=== PATIENT | male | born 1995 | race African-American/Black ===

== ENCOUNTER 2017-06-25 12:42 | Emergency (ER) | payer MEDICAID ==
[~2017-06-25] VITALS: Ht 182.9 cm; Wt 68.0 kg
[2017-06-25 12:55] VITALS: BP 143/116
[2017-06-25 13:35] VITALS: BP 104/76
[2017-06-25] MEDS ORDERED: levETIRAcetam 500mg/NS100ml 100 ML IVPB ONE (13:45)
[2017-06-25 13:49] LABS: BASOPHILS % (AUTO) 0.5 % (0.0-2.0); EOSINOPHILS % (AUTO) 0.3 % (0.0-3.0); LYMPHOCYTES % (AUTO) 13.8 % (20.0-45.0); MEAN CORPUSCULAR HEMOGLOBIN 26.3 PG (27.0-31.0); MEAN CORPUSCULAR VOLUME 80 FL (80-99); MEAN PLATELET VOLUME 6.2 FL (6.5-10.1); NEUTROPHILS % (AUTO) 78.4 % (45.0-75.0); PLATELET COUNT 227 K/UL (150-450); RED BLOOD COUNT 5.32 M/UL (4.70-6.10); RED CELL DISTRIBUTION WIDTH 11.8 % (11.6-14.8); WHITE BLOOD COUNT 8.1 K/UL (4.8-10.8)
[2017-06-25 14:06] LABS: ANION GAP 16 mmol/L (5-15); CALCIUM 9.8 MG/DL (8.5-10.1); CARBON DIOXIDE 21 MMOL/L (21-32); CHLORIDE 104 MMOL/L (98-107); CREATININE 1.3 MG/DL (0.55-1.30); GLOMERULAR FILTRATION RATE > 60 mL/min (>60); POTASSIUM 3.9 MMOL/L (3.5-5.1); SODIUM 141 MMOL/L (136-145)
[2017-06-25 14:09] VITALS: BP 106/74
[2017-06-25 14:16] LABS: ALANINE AMINOTRANSFERASE 30 U/L (12-78); ALBUMIN/GLOBULIN RATIO 1.2 (1.0-2.7); ASPARTATE AMINO TRANSFERASE 25 U/L (15-37); CARBAMAZEPINE (TEGRETOL) < 0.5 ug/mL (4.0-12.0); TOTAL PROTEIN 8.3 G/DL (6.4-8.2); VALPROIC ACID 3 MCG/ML (50-100)
[2017-06-25 14:18] LABS: BILIRUBIN,DIRECT 0.2 MG/DL (0.0-0.3)
[2017-06-25] MEDS ORDERED: Depakote 500mg tab ORAL ONE (14:30)
[2017-06-25] MEDS ORDERED: DIGOXIN125 MCG ORAL (14:45)
[2017-06-25] MEDS ORDERED: KEPPRA500 M4 ORAL (14:45)
[2017-06-25] MEDS ORDERED: ENALAPRIL MALE2.5 MG ORAL (14:45)
[2017-06-25] MEDS ORDERED: ASPIRIN81 MG ORAL (14:45)
[2017-06-25] MEDS ORDERED: FUROSEMIDE20 M1 ORAL (14:45)
[2017-06-25] MEDS ORDERED: KEPPRA750 MG ORAL (15:38)
[2017-06-25] MEDS ORDERED: ZOFRAN4 M3 ORAL (15:38)
[2017-06-25 15:45] VITALS: BP 108/63
[2017-06-25 15:48] VITALS: BP 108/63
--- NOTE | 2017-06-26 10:24 | Emergency Room Report ---
History of Present Illness General Chief Complaint: Seizure Source: Patient, EMS Present Illness HPI Patient is a 21-year-old male brought in by EMS after his witnessed seizure. Patient had prior history of seizure disorder. He is taking unknown medications. Patient had a reported tonic-clonic episode. He denies any recent fever. He reports having some generalized nausea. He was noted to have vomited one time. Allergies: Coded Allergies: No Known Allergies (Unverified , 06/25/17) Patient History Past Medical History: see triage record Reviewed Nursing Documentation: PMH: Agreed, PSxH: Agreed Nursing Documentation-PMH Past Medical History: No History, Except For Hx Cardiac Problems: Yes - "heart prob" Hx Seizures: Yes Review of Systems All Other Systems: negative except mentioned in HPI Physical Exam Vital Signs Date Time Temp Pulse Resp B/P (MAP) Pulse Ox O2 Delivery O2 Flow Rate FiO2 06/25/17 12:55 97.3 105 22 143/116 100 Room Air Sp02 EP Interpretation: reviewed, normal General Appearance: normal inspection, well appearing, no apparent distress, alert, GCS 15 Head: atraumatic ENT: normal ENT inspection, hearing grossly normal, normal voice Neck: normal inspection, full range of motion, supple, no bony tend Respiratory: normal inspection, lungs clear, normal breath sounds, no respiratory distress, no retraction, no wheezing Cardiovascular #1: regular rate, rhythm, no edema Gastrointestinal: normal inspection, normal bowel sounds, non tender, soft, no guarding, no hernia Genitourinary: no CVA tenderness Musculoskeletal: normal inspection, back normal, normal range of motion Neurologic: normal inspection, alert, oriented x3, responsive, harness fitter III-XII nml as tested, speech normal Psychiatric: normal inspection, judgement/insight normal, mood/affect normal Skin: normal inspection, normal color, no rash Medical Decision Making Diagnostic Impression: Primary Impression: Epileptic seizure, generalized Additional Impressions: Hx of cardiomyopathy Seizure disorder ER Course Patient presented for seizure. Differential diagnosis included cysticercosis , medication noncompliance, electrolyte abnormality, mass lesion, or cranial hemorrhage.Because of complexity of patient's case laboratory testing and imaging studies were ordered. Patient was noted to have prior history of seizure disorder. Initially patient' s medications are unknown. The patient's mother subsequently contacted after laboratory orders and she was noted to be on digoxin for cardiomyopathy With reported poor RV function as well as Keppra for seizures. Per the patient's mother he had intermittent compliance with his medications. The patient was given IV fluids as well as IV Keppra. The patient was noted to have a reported history of cardiomyopathy. He reportedly takes digoxin. The mother states is a congenital condition and he did not require any surgical intervention Labs Test 06/25/17 13:17 06/25/17 15:20 White Blood Count 8.1 K/UL (4.8-10.8) Red Blood Count 5.32 M/UL (4.70-6.10) Hemoglobin 14.0 G/DL (14.2-18.0) Hematocrit 42.5 % (42.0-52.0) Mean Corpuscular Volume 80 FL (80-99) Mean Corpuscular Hemoglobin 26.3 PG (27.0-31.0) Mean Corpuscular Hemoglobin Concent 33.0 G/DL (32.0-36.0) Red Cell Distribution Width 11.8 % (11.6-14.8) Platelet Count 227 K/UL (150-450) Mean Platelet Volume 6.2 FL (6.5-10.1) Neutrophils (%) (Auto) 78.4 % (45.0-75.0) Lymphocytes (%) (Auto) 13.8 % (20.0-45.0) Monocytes (%) (Auto) 7.0 % (1.0-10.0) Eosinophils (%) (Auto) 0.3 % (0.0-3.0) Basophils (%) (Auto) 0.5 % (0.0-2.0) Sodium Level 141 MMOL/L (136-145) Potassium Level 3.9 MMOL/L (3.5-5.1) Chloride Level 104 MMOL/L (98-107) Carbon Dioxide Level 21 MMOL/L (21-32) Anion Gap 16 mmol/L (5-15) Blood Urea Nitrogen 10 mg/dL (7-18) Creatinine 1.3 MG/DL (0.55-1.30) Estimat Glomerular Filtration Rate > 60 mL/min (>60) Glucose Level 92 MG/DL (74-106) Calcium Level 9.8 MG/DL (8.5-10.1) Total Bilirubin 1.1 MG/DL (0.2-1.0) Direct Bilirubin 0.2 MG/DL (0.0-0.3) Aspartate Amino Transf (AST/SGOT) 25 U/L (15-37) Alanine Aminotransferase (ALT/SGPT) 30 U/L (12-78) Alkaline Phosphatase 78 U/L (46-116) Troponin I 0.000 ng/mL (0.000-0.056) Total Protein 8.3 G/DL (6.4-8.2) Albumin 4.6 G/DL (3.4-5.0) Globulin 3.7 g/dL Albumin/Globulin Ratio 1.2 (1.0-2.7) Phenytoin (Dilantin) Level < 0.4 ug/mL (10-20) Valproic Acid (Depakene) Level 3 MCG/ML (50-100) Carbamazepine (Tegretol) Level < 0.5 ug/mL (4.0-12.0) Phenobarbital Level < 1.0 ug/mL (15-40) Urine Opiates Screen Negative (NEGATIVE) Urine Barbiturates Screen Negative (NEGATIVE) Phencyclidine (PCP) Screen Negative (NEGATIVE) Urine Amphetamines Screen Negative (NEGATIVE) Urine Benzodiazepines Screen Negative (NEGATIVE) Urine Cocaine Screen Negative (NEGATIVE) Urine Marijuana (THC) Screen Positive (NEGATIVE) Last Vital Signs Date Time Temp Pulse Resp B/P (MAP) Pulse Ox O2 Delivery O2 Flow Rate FiO2 06/25/17 15:48 98.2 64 18 108/63 100 Room Air Status: improved Disposition: HOME, SELF-CARE Condition: Stable Scripts Ondansetron* (ZOFRAN*) 4 Mg Tablet 4 MG ORAL Q6H Y for Nausea & Vomiting, #14 TAB Prov: José Miguel Bocanegra 06/25/17 Levetiracetam (KEPPRA) 750 Mg Tablet 750 MG ORAL Q12HR, #30 TAB Prov: José Miguel Bocanegra 06/25/17 Referrals: NOT CHOSEN IPA/MD,REFERRING (PCP) Patient Instructions: Seizure, Adult José Miguel Bocanegra Jun 26, 2017 10:24
--- NOTE | 2017-06-27 17:17 | Cardiology Report ---
APPROVED REPORT EKG Measurement Heart [id number] Normal sinus rhythm Possible Left atrial enlargement Nonspecific ST abnormality Abnormal ECG
== END 2017-06-25 15:48 | disposition home or self-care (01) ==
LOC: EDBD 12:42 → EMR 13:40
DX: G40.409 Other generalized epilepsy and epileptic syndromes, not intractable, without status epilepticus (principal); I42.9 Cardiomyopathy, unspecified
CPT/HCPCS: 36415; 80053; 80156; 80164; 80184; 80185; 80307; 82248; 82962; 84484; 85025; 93005; 96361; 96365; 96375; 99284; J1953; J2405